=== PATIENT | female | born 1975 | race Caucasian/White ===

== ENCOUNTER → 2019-09-30 | Outpatient (CLI) | payer OTHER | END | disposition home or self-care (01) | LOC: CFH 07:19 → EDSTATUS 07:45 | PROVIDERS: ATTEND Specialist | DX: N83.292 Other ovarian cyst, left side (principal); D25.9 Leiomyoma of uterus, unspecified; N93.9 Abnormal uterine and vaginal bleeding, unspecified; Z88.5 Allergy status to narcotic agent | CPT/HCPCS: 76856 ==